=== PATIENT | male | born 1945 | race Caucasian/White ===

== ENCOUNTER 2019-12-14 06:05 | Inpatient (IN) | payer OTHER ==
[~2019-12-14] VITALS: Ht 170.2 cm; Wt 64.9 kg
[~2019-12-14 06:05] MED LIST: ARICEPT5 MG PO; TAMS0.4C PO
[2019-12-14] MEDS ORDERED: ARICEPT10 MG PO (08:24)
== END 2019-12-16 09:15 | disposition home or self-care (01) | DRG 708 ==
LOC: SURH 06:05 → O/R 06:05 → SURH 15:56
PROVIDERS: ADMIT Urology
PROC: 0VT30ZZ Resection of Bilateral Seminal Vesicles, Open Approach (ICD-10-PCS; 2019-12-14)
PROC: 07BC0ZX Excision of Pelvis Lymphatic, Open Approach, Diagnostic (ICD-10-PCS; 2019-12-14)
PROC: 0VT00ZZ Resection of Prostate, Open Approach (ICD-10-PCS; principal; 2019-12-14 08:15)
DX: C61 Malignant neoplasm of prostate (principal); R97.21 Rising PSA following treatment for malignant neoplasm of prostate; N49.0 Inflammatory disorders of seminal vesicle